=== PATIENT | male | born 1975 | race Asian ===

== ENCOUNTER 2024-07-02 18:52 | Emergency (ER) | payer OTHER ==
[~2024-07-02] VITALS: Ht 172.7 cm; Wt 73.5 kg
[2024-07-02 18:53] VITALS: PULSE 76; TEMP 98.7
[2024-07-02] MEDS ORDERED: emtricitabine/tenofovir 200mg/300mg tablet PO ONE (19:40)
[2024-07-02] MEDS ORDERED: RALT400T PO (19:43)
[2024-07-02] MEDS ORDERED: EMTR1TAB12 PO (19:43)
[2024-07-02 20:11] LABS: HIV ANTIBODY 1&2 RAPID NON-REACTIVE (Neg)
[2024-07-02] MEDS: raltegravir 400mg tablet PO ONE (20:19)
[2024-07-02] MEDS: hepatitis B virus vaccine/PF 20mcg/ml vaccine***IM only IMVAC ONE (20:21)
[2024-07-02] MEDS: emtricitabine/tenofovir 200mg/300mg tablet PO ONE (20:21)
[2024-07-02 20:27] VITALS: RESP 16
[2024-07-08 05:37] LABS: HEP B CORE AB, IGM Negative (Negative); HEP B CORE AB, TOT Negative (Negative)
== END 2024-07-02 20:28 | disposition home or self-care (01) ==
LOC: EEVIPCON 18:53 → ER 18:53
DX: S61.032A Puncture wound without foreign body of left thumb without damage to nail, initial encounter (principal); K75.9 Inflammatory liver disease, unspecified; Z79.899 Other long term (current) drug therapy; W27.3XXA Contact with needle (sewing), initial encounter; Y93.89 Activity, other specified; Y92.89 Other specified places as the place of occurrence of the external cause; Y99.8 Other external cause status
CPT/HCPCS: 36415; 86703; 86704; 86705; 90471; 90746; 99283